=== PATIENT | male | born 1995 | race Caucasian/White ===

== ENCOUNTER 2023-03-15 09:46 | Emergency (ER) | payer OTHER, SELFPAY ==
--- NOTE | ~2023-03-15 | CT_ITS ---
EXAMINATION: CT abdomen pelvis w con DATE: 03/15/2023 11:37 INDICATION: Left-sided abdominal pain TECHNIQUE: Computed tomography (CT) of the abdomen and pelvis was performed without intravenous contr ast. The dose-length product was 1258.29 mGy-cm. Automated exposure control and iterative reconstruct ion technique were employed. COMPARISON: None. FINDINGS: Lung bases are unremarkable. Heart size normal. No significant pleural or pericardial effus ion. Lung bases are unremarkable. Heart size normal. No significant pleural or pericardial effusion. Fatty infiltration of the liver. The spleen, pancreas, adrenal glands and kidneys are unremarkable. N ormal appendix. There is fluid throughout the small bowel and colon with scattered air-fluid levels, nonspecific. No definite obstruction. No free air or free fluid. No significant vascular abnormality. No lymphadenopathy. IMPRESSION: 1. Moderate fluid throughout the bowel which may represent gastroenteritis or ileus. No definite obst ruction Reviewed, dictated and finalized at location B. TRIMMER IMPRESSION: 1. Moderate fluid throughout the bowel which may represent gastroenteritis or i leus. No definite obstruction
[2023-03-15 09:58] VITALS: BP 128/88; PULSE 115; RESP 19; TEMP 36.3; O2SAT 100
[2023-03-15 10:22] LABS: Hematocrit 51.6 % (42.0-52.0); Hemoglobin 16.6 g/dL (14.0-18.0); Mean Corpuscular HGB Conc 32.2 g/dl (32-36); Mean Corpuscular Hemoglobin 28.4 pg (26-34); Mean Corpuscular Volume 88.2 fl (80-100); Mean Platelet Volume 10.4 fl (7.4-10.4); Platelet Count Result 296 k/mm3 (150-375); Red Blood Count 5.85 M/mm3 (4.6-6.20); Red Cell Distribution Width 12.7 % (11.5-14.5); White Blood Count 10.3 K/mm3 (4.5-10.0)
[2023-03-15 10:30] LABS: Appearance Urine Clear (Clear); Bacteria Urine None Seen /hpf; Bilirubin Urine Negative (Negative); Blood Urine Negative (Negative); Color Urine Dark Yellow (Yellow); Glucose Urine UA Negative (Negative); Ketones Urine Trace mg/dL (Negative); Leukocyte Esterase Ur Negative LEU/UL (Negative); Nitrate Urine Negative (Negative); Non Pathogenic Casts 0-2; Protein Urine 1+ mg/dL (Negative); RBC Urine 0-2 /hpf (0-2); Squamous Epithelial Cell Urine None seen /hpf (Few); WBC Urine 0-5 /hpf; pH Urine 6.5 (5.0-9.0)
[2023-03-15 10:31] LABS: Add Urine Microscopic? YES
[2023-03-15 10:31] LABS: Alanine Aminotransferase 35 U/L (6-50); Alkaline Phosphatase 55 U/L (38-126); Anion Gap 15 mmol/L (8-16); Aspartate Amino Transferase 29 U/L (17-59); Bilirubin,Total 0.8 mg/dL (0.2-1.3); Blood Urea Nitrogen 21 mg/dL (9-20); Calcium 9.6 mg/dL (8.4-10.2); Carbon Dioxide 20 mmol/L (22-30); Chloride 103 mmol/L (98-107); Estimated CRCL calculation 127 ml/min; Estimated Glomerular Filt Rate > 60; Glucose 176 mg/dL (65-110); Lipase 115 U/L (23-300); Potassium 4.4 mmol/L (3.4-5.0); Sodium 138 mmol/L (137-145)
[2023-03-15 10:34] LABS: Band Neutrophils Percent 10 % (0-6); Lymphocytes Percent Manual 2 % (18-44); Neutrophils Absolute Manual 9.68 K/mm3 (1.3-6.7); Neutrophils Percent Manual 84 % (46-73); Total Cells Counted 100
[2023-03-15 10:35] LABS: Monocytes Absolute Manual 0.41 K/mm3 (0.1-0.90); Monocytes Percent Manual 4 % (3-9)
[2023-03-15 10:36] LABS: Hypochromasia 1+ (NORMAL); Platelet Estimate Adequate (Adequate); Schistocytes None Seen (NORMAL)
[2023-03-15] MEDS: SODIUM CHLORIDE 0.9% IV 1,000 ML 999 ML IV CONT ×2 (11:13)
[2023-03-15] MEDS: ONDANSETRON INJ 4 MG/2 ML VIAL IV PUSH (11:13)
--- NOTE | 2023-03-15 11:14 | PC.NURSE ---
Pt to CT scan via stretcher at this time.
--- NOTE | 2023-03-15 11:22 | ED.NAVMDI ---
HPI - Nausea/Vomiting/Diarrhea General Chief complaint: Nausea/Vomiting/Diarrhea Stated complaint: vomiting, diarrhea Time Seen by Provider: 03/15/23 10:07 Source: patient Mode of arrival: ambulatory Limitations: no limitations History of Present Illness HPI Narrative: Patient is a 27-year-old male who presents the ED with report of nausea, vomiting, diarrhea. Patient reports symptoms began last night. He notes he had leftover [place] hendrickson that had been sitting out for a while prior to when the symptoms began. He noted numerous episodes of vomiting and diarrhea throughout the night. He has been able to keep down some fluids today, but does complain of persistent nausea. Also reports left-sided abdominal pain. Significant other at bedside has had similar milder symptoms. Patient reports chills, denies known fever. Denies rectal bleeding or melena. Denies hematemesis. Related Data Allergies Allergy/AdvReac Type Severity Reaction Status Date / Time No Known Allergies Allergy Verified 03/15/23 10:05 Review of Systems Review of Systems: CONSTITUTIONAL: See HPI. CARDIOVASCULAR: Denies chest pain. RESPIRATORY: Denies dyspnea. GASTROINTESTINAL: See HPI. GENITOURINARY: Denies dysuria or hematuria. SKIN: Denies rash or itching. MUSCULOSKELETAL: Denies back pain, joint pain, or myalgia. All systems reviewed & are unremarkable except as noted in HPI and below PMFSH Family History Family History Father Patient's father is in good health Sibling Patient's sister is in good health Mother Patient's mother is Social History Social History Smoking status: Never smoker Alcohol intake: never Exam Narrative: GENERAL: Mildly ill appearing, obese with BMI of 31.6, non-toxic, in no acute distress. HEAD: Normocephalic, atraumatic. NECK: Supple. No adenopathy, no masses. RESPIRATORY: Airway patent, respirations nonlabored. Clear to auscultation bilaterally, no rales, rhonchi, wheezing. CARDIOVASCULAR: Regular rate and rhythm without murmurs, rubs, or gallops. Radial pulses 2+ and equal bilaterally. ABDOMINAL: Soft, mild tenderness throughout left lower abdomen/epigastric region, nondistended, no hepatosplenomegaly. Normoactive BS. MUSCULOSKELETAL: Moves all extremities. No gross deformities. SKIN: Warm, dry, normal color. No rashes. NEURO: A&O X3. Speech clear. Cranial nerves II-XII grossly intact. Steady gait. No ataxic movements. PSYCHIATRIC: Appropriate mood and affect. Normal interaction. Course Vital Signs Vital signs: Vital Signs Temperature 97.4 F L 03/15/23 09:58 Pulse Rate 115 H 03/15/23 09:58 Respiratory Rate 19 03/15/23 09:58 Blood Pressure 128/88 03/15/23 09:58 Pulse Oximetry 100 03/15/23 09:58 Oxygen Delivery Room Air 03/15/23 09:58 Temperature 97.4 F L 03/15/23 09:58 Pulse Rate 100 03/15/23 12:54 Respiratory Rate 23 H 03/15/23 12:54 Blood Pressure 117/74 03/15/23 12:54 Pulse Oximetry 100 03/15/23 12:54 Oxygen Delivery Room Air 03/15/23 09:58 MDM - Nausea/Vomiting/Diarrhea MDM Narrative Medical decision making narrative: Patient presented to ED with report of nausea, vomiting, diarrhea, ate leftover [place] that had been sitting out. Family member with similar symptoms. Patient tachycardic upon arrival. Does appear very dry. Afebrile. Fluids initiated. CBC with minimal leukocytosis of 10.3. Neutrophil predominance. 10% bands noted. CMP with bicarb slightly low at 20, slightly elevated blood glucose, otherwise relatively unremarkable. Stable electrolytes. Normal LFTs and lipase. UA with elevated specific gravity, trace ketones, no evidence for infection. Fluids ongoing. CT scan of abdomen pelvis obtained and showing findings consistent with gastroenteritis. Fits with clinical picture. Discussed lab
[2023-03-15 12:03] LABS: Magnesium 1.8 mg/dL (1.6-2.3)
[2023-03-15 12:12] VITALS: BP 147/84; PULSE 99; RESP 27; O2SAT 100
[2023-03-15 12:54] VITALS: BP 117/74; PULSE 100; RESP 23; O2SAT 100
== END 2023-03-15 12:56 | disposition home or self-care (01) ==
PROVIDERS: Emergency Medicine; Emergency Provider Physician Assistant
DX: K52.9 Noninfective gastroenteritis and colitis, unspecified (principal); E86.0 Dehydration
CPT/HCPCS: 36415; 74177; 80053; 81001; 83690; 83735; 85025; 96361; 96374; 99284; J2405; J7030; Q9967

== ENCOUNTER 2024-02-03 12:08 | Outpatient (CLI) | payer OTHER, SELFPAY ==
--- NOTE | 2024-02-03 12:19 | ECG_ITS ---
Test Date: 2024-02-03 12:26:32 Measurements Intervals [place] Rate: 80 P: 46 W[place]: 151 QRS: 84 QRSD: 101 T: 44 QT: 378 QTc: 438 Interpretive Statements SINUS RHYTHM NORMAL ELECTROCARDIOGRAM WARNING: DATA QUALITY MAY AFFECT INTERPRETATION No previous ECG available for comparison Electronically Signed On 02-03-2024 16:08:44 CDT by Emerson Spencer M.D.
== END 2024-02-03 12:09 | disposition home or self-care (01) ==
LOC: ANHCARD 12:10
PROVIDERS: PCP Emergency Medicine; Visit Provider Emergency Medicine
DX: R00.2 Palpitations (principal)
CPT/HCPCS: 93005